=== PATIENT | female | born 1960 | race Caucasian/White ===

== ENCOUNTER 2018-07-02 00:24 | Outpatient (CLI) | payer BC, SELFPAY ==
--- NOTE | 2018-07-02 11:46 | DI.MAMMO_ITS ---
SYMPTOM/DIAGNOSIS: SCREENING, FAMILY HISTORY, Z80.3, Z12.31 MAMMOGRAMS: Mammograms were interpreted according to the usual protocol including computer analysis with CAD system, tomosynthesis and C view imaging. Comparison is made with prior examinations. Breast density, B. No masses or microcalcifications are seen. There is nothing to suggest malignancy. IMPRESSION: Negative mammogram. Routine screening is recommended. Category 1. MQSA ASSESSMENT OF FINDINGS: Negative. Category 1. Patient will receive a letter notifying them of these results. BI-RADS category B. There are scattered areas of fibroglandular density.
== END 2018-07-02 00:44 ==
PROVIDERS: PCP Family Medicine; Visit Provider Nurse Practitioner Women's Health
DX: Z13.1 Encounter for screening for diabetes mellitus (principal); Z80.3 Family history of malignant neoplasm of breast
CPT/HCPCS: 77063; 77067

== ENCOUNTER 2020-07-20 04:06 | Outpatient (CLI) | payer BC, SELFPAY ==
[2020-07-20 08:41] LABS: Abs Immature Grans 0.02 10^3/uL (0.0-0.06); Absolute Basophil Count 0.06 10^3/uL (0.0-0.2); Absolute Eosinophil Count 0.19 10^3/uL (0.0-0.7); Absolute Monocyte Count 0.72 10^3/uL (0.1-0.8); Absolute Neutrophil Count 5.43 10^3/uL (1.2-6.7); Basophils % 0.7; Eosinophils % 2.3; HCT 42.7 % (36.0-46.0); HGB 13.9 g/dL (11.2-15.7); Immature Grans % 0.2; Lymphocytes % 22.8; MCH 30.3 pg (27.0-33.0); MCHC 32.6 % (32.0-36.0); MCV 93.2 fL (80-95); MPV 9.2 fL (8.0-11.0); Monocytes % 8.7; Neutrophils % 65.3; Nucleated RBC 0 %; Platelet Count 387 10^3/uL (130-400); RBC 4.58 10^6/uL (3.93-5.22); RDW 13.6 % (11.7-14.6); RDW-SD 46.8 fL; WBC 8.32 10^3/uL (4.4-10.8)
[2020-07-20 09:30] LABS: Anion Gap 7.2 mmol/L (3-11); BUN 17 mg/dL (7-18); CO2 26.8 mmol/L (21.0-32.0); CREATININE 0.58 mg/dL (0.55-1.02); Calcium 8.5 mg/dL (8.5-10.1); Calculated LDL 253 mg/dL (<100); Chloride 106 mmol/L (98-107); Cholesterol 337 mg/dL (<200); Glucose 94 mg/dL (74-106); HDL Cholesterol 40 mg/dL (40-60); Potassium 4.3 mmol/L (3.5-5.1); Sodium 140 mmol/L (136-145); Triglyceride 221 mg/dL (<150)
[2020-07-21 04:20] LABS: Vitamin D 25 Total 34.4 ng/ml (30-100)
== END 2020-07-20 04:26 ==
PROVIDERS: PCP Family Medicine; Visit Provider Family Medicine
DX: F41.9 Anxiety disorder, unspecified (principal); E78.5 Hyperlipidemia, unspecified; E55.9 Vitamin D deficiency, unspecified
CPT/HCPCS: 36415; 80048; 80061; 82306; 85025

== ENCOUNTER 2020-10-05 01:38 | Outpatient (CLI) | payer BC, SELFPAY ==
--- NOTE | 2020-10-05 | DI.MAMMO_ITS ---
EXAM: MG MAMMO SCREENING CLINICAL HISTORY: SCREENING, Z12.31. TECHNIQUE: Bilateral full field digital CC and MLO mammographic images were obtained with 3D tomosyn thesis and utilizing computer aided detection (CAD). COMPARISON: Prior mammograms dating back to 2012, the most recent being appropriate 2017. FINDINGS: There are no CAD designations. There are no spiculated masses nor malignant appearing microcalcification groups. There is no signif icant architectural distortion nor skin thickening-retraction. IMPRESSION: No radiographic evidence of malignancy. BI-RADS Category 1 - Negative Breast Density - Category B - Scattered areas of fibroglandular density Breast density Category C or D implies that the patient has dense breast tissue. Dense breast tissue can make it harder to find cancer on a mammogram. Dense breast tissue is also associated with an incr eased risk of breast cancer. This information about the result of the mammogram report was provided to the patient to raise their awareness. Use this report when you speak with the patient about their risks for breast cancer, which includes their family history. At that time, you may recommend additional screening tests (Ultrasoun d or MRI) as these tests may add significant information. A negative radiographic report should not delay biopsy if a dominant or clinically suspicious mass is present. Up to ten percent of cancers are not identified on mammography. A negative report may reinforce clinical impression. Adenosis and dense breasts may obscure an underlying neoplasm. False positive reports average 6 to 10%. Patient will receive a letter notifying them of these results.
== END 2020-10-05 01:58 ==
PROVIDERS: PCP Family Medicine; Visit Provider Obstetrics & Gynecology
DX: Z12.31 Encounter for screening mammogram for malignant neoplasm of breast (principal)
CPT/HCPCS: 77063; 77067

== ENCOUNTER 2021-08-22 11:29 | Outpatient (CLI) | payer BC, SELFPAY ==
--- NOTE | 2021-08-22 10:30 | DI.RAD_ITS ---
Exam(s) XR CLAVICLE LT EXAM: XR CLAVICLE LT CLINICAL HISTORY: LEFT CLAVICLE FRACTURE TECHNIQUE: 2D digital imaging was performed of the left clavicle. Two images were obtained. AP and axial views were obtained. COMPARISON: No exams were available for comparison FINDINGS: BONES: There is again seen a comminuted fracture of the midshaft of the left clavicle. There has bee n some change in alignment of the fracture with less over riding of the fracture noted. No bony dest ructive lesion is seen. JOINTS: No dislocation present. SOFT TISSUE: Normal. IMPRESSION: Comminuted fracture of the midshaft of the left clavicle. DATA REPOSITORY: RADIATION DOSE DELIVERED:
== END 2021-08-22 11:30 | disposition home or self-care (01) ==
LOC: DIORS 11:30
PROVIDERS: PCP Family Medicine; Referring Provider Family Medicine; Visit Provider Student in an Organized Health Care Education/Training Program
DX: S42.002D Fracture of unspecified part of left clavicle, subsequent encounter for fracture with routine healing (principal)
CPT/HCPCS: 73000

== ENCOUNTER 2021-08-23 02:21 | Outpatient (CLI) | payer BC, SELFPAY ==
[2021-08-23 12:25] LABS: Source Nasal/Nares
[2021-08-23 15:11] LABS: COVID-19 PCR Negative (Negative)
== END 2021-08-23 02:22 | disposition home or self-care (01) ==
LOC: LBO 02:21
PROVIDERS: PCP Family Medicine; Visit Provider Student in an Organized Health Care Education/Training Program
DX: Z20.822 Contact with and (suspected) exposure to COVID-19 (principal)
CPT/HCPCS: 87635

== ENCOUNTER 2021-08-24 06:01 | Day surgery (SDC) | payer BC, SELFPAY ==
[2021-08-24] VITALS (9 sets, daily range): BP systolic 92–116; BP diastolic 31–71; PULSE 69–88; RESP 10–25; TEMP 36–36.9; O2SAT 94–98; BMI 29.5
[2021-08-24] MEDS: Lactated Ringers 1,000 ML 100 ML IV (06:41)
--- NOTE | 2021-08-24 07:06 | W.ANESPRE ---
General Info Date of Service Date Performed: 08/24/21 Height: 5 ft 1 in Weight: 70.8 kg Body Mass Index (BMI): 29.5 Surgical Procedure: Operation Date: 08/24/21 07:40 Proposed Procedures Side Surgeon p Shoulder ORIF Clavicle Left John Jernigan MD Meds Allergies and Home Medications Allergies Allergy/AdvReac Type Severity Reaction Status Date / Time No Known Allergies Allergy Verified 08/24/21 06:22 Home Medication Medication Instructions Recorded atorvastatin 40 mg tablet 40 mg PO DAILY 08/22/21 cholecalciferol (vitamin D3) 25 25 mcg PO DAILY 08/22/21 mcg (1,000 unit) capsule diphenhydramine HCl 50 mg capsule 50 mg PO QHS 08/22/21 magnesium 250 mg tablet 250 mg PO DAILY 08/22/21 paroxetine HCl 20 mg tablet 20 mg PO DAILY 08/22/21 acetaminophen [Tylenol] 08/24/21 ibuprofen 08/24/21 Current Visit Medications: Current Medications Generic Name Dose Route Start Last Admin Trade Name Freq PRN Reason Stop Dose Admin Ringer's Solution 1,000 mls @ 100 mls/hr 08/24/21 06:00 08/24/21 06:41 IV 09/22/21 23:59 100 mls/hr INFUSION ABELARDO Administration Cefazolin Sodium/Dextrose 2 gm in 50 mls @ 100 mls/hr 08/24/21 06:00 Ancef Duplex IVPB 08/24/21 16:00 PREOP ABELARDO IV Miscellaneous Supplies 1 each 08/24/21 06:00 Iv Access IV 09/22/21 23:59 DIRECTED ABELARDO Sodium Chloride 0 ml 08/24/21 06:00 Normal Saline Flush 10 Ml Syr IV 09/22/21 23:59 PRN PRN Sodium Chloride 0 ml 08/24/21 06:00 Normal Saline 10 Ml Vial IJ 09/22/21 23:59 DIRECTED PRN Sterile Water 0 ml 08/24/21 06:00 Water,Injection,Sterile 10 Ml Vial IJ 09/22/21 23:59 DIRECTED PRN PFSH Active Problems Active Problems: Problem Status Onset Code Closed left clavicular fracture 08/20/21 S42.002A Medical History Active Problem List Closed left clavicular fracture (Acute 08/20/21) Medical History Anxiety HLD (hyperlipidemia) Medical History Comments:: Pt. states with previous surgeries she has been very hypotensive during surgery Surgical History Surgical History (Updated 08/24/21 @ 06:22 by Bindu Helm RN) Hx of appendectomy Hx of section x2 Tobacco Smoking/Tobacco Use Status: Current every day Alcohol Alcohol Intake: current Alcohol intake frequency: holidays/special occasions only Alcohol type: wine Substance Use Substance use: Never Substance use type: does not use Vital Signs and Lab Results Vital Signs Most Recent Vital Signs in EMR: Most Recent Vital Signs Temp Pulse Resp BP Pulse Ox 36.0 C L 88 18 95/63 L 97 08/24/21 06:07 08/24/21 06:07 08/24/21 06:07 08/24/21 06:07 08/24/21 06:07 Lab Results Blood Type / Crossmatch: No Data to Display Complete Blood Count: No Data to Display Complete Metabolic Panel: No Data to Display Liver Function Panel: No Data to Display Coagulation Panel: No Data to Display Cardiac Panel: No Data to Display Arterial Blood Gas: No Data to Display Venous Blood Gas: No Data to Display Pancreas Panel: No Data to Display Thyroid Panel: No Data to Display Infectious Disease: Coronavirus (COVID-19)(PCR) Negative (Negative) 08/23/21 09:06 08/23/21 Coronavirus 2019 Source Nasal/Nares 08/23/21 09:06 08/23/21 Blood Cultures: No Data to Display Toxicology Panel: No Data to Display Anesthesia Assessment and Plan Anesthesia History Personal History: Other Family History: No Family History of Anesthesia Complications Exercise Tolerance Exercise Tolerance: Metabolic Equivalents>4 Pertinent Negatives Pertinent Negatives: No Major Cardiovascular Symptoms or Complaints, No Major Pulmonary Symptoms or Complaints and No History of CVA/TIA Cardiac & Pulmonary Exam Cardiac Exam: Normal S1/S2 Heart Sounds Pulmonary Exam: Clear Bilateral Breath Sounds Implantable Cardiac Device Does patient have a Pacemaker or an ICD?: No Airway Exam Known Difficult Airway: No Mallampati Class: 2 Mouth Opening: Normal (> 3cm) Thyromental Distance: Greater than 3 cm Neck Range of Motion: Full ROM Neck Circumference: Normal Teeth Condition: Normal Dentition ASA Classification ASA Score: ASA 2 Emergency Case?: No NPO Status NPO Status: NPO Clears >2 hours, Solids >8 hours Anesthesia Plan Resuscitation Status: Full Code Anesthesia Technique: General Anesthesia Airway Planned: Endotracheal Tube Pain Management: Surgeon and patient request nerve block Monitors Used: Standard Monitors
[2021-08-24] MEDS: ceFAZolin 2 GM/50 ML BAG IVPB (07:28)
--- NOTE | 2021-08-24 08:00 | W.ANESNERVE ---
Nerve Block Single Injection Procedure Date and Time Date Performed: 08/24/21 Procedure Start: 07:20 Location Where Procedure Performed Procedure Location: Day Surgery Unit Reason Performed: Postoperative Analgesia Requesting Provider: John Jernigan Timeout Performed Timeout Performed: Yes Monitoring Used ECG, Blood Pressure, SpO2 and See EMR for corresponding vital signs Sterility Sterility: Hand Hygiene, Surgical Cap, Surgical Mask, Sterile Gloves and Chlorhexidine Sedation Given During Procedure Sedation Given (Indicate Dose Given): Versed IV Dose:: 2 mg Patient Mental Status Patient Mental Status: Sedate with meaningful communication Nerve Block 1st Nerve Block: Laterality: Left Block Type: Supraclavicular Needle / Catheter Used: 100mm SonoPlex II Local Anesthetic Bolus (Indicate Dose Given): Lidocaine used for local infiltration of skin, Injected in 3-5ml increments after negative blood aspiration, Bupivacaine 0.5% Dose:: 10 ml and Exparel Dose:: 10 ml Additives (Indicate Dose Given): None Ultrasound: Sterile probe cover and gel used Ultrasound Image Saved?: Yes Nerve Stimulator: Not Used Paresthesia: Left (Resolved with needle repositioning) Paresthesia Duration: Transient Procedure Tolerated: No Complications and Patient tolerated well Procedure Outcome: Successful Performed By: Sweetie Sanchez
--- NOTE | 2021-08-24 09:25 | DI.RAD_ITS ---
Exam(s) XR CLAVICLE LT EXAM: XR CLAVICLE LT CLINICAL HISTORY: Closed left clavicular fracture. TECHNIQUE: 2D digital imaging was performed. COMPARISON: No exams were available for comparison FINDINGS: Fluoroscopy was provided during orthopedic procedure on left clavicle fracture. See procedure report for details. IMPRESSION: Total fluoroscopy time 30 point seconds Total cumulative dose 1.64mGy DATA REPOSITORY: RADIATION DOSE DELIVERED:
--- NOTE | 2021-08-24 10:38 | PDOC.DSDIS_ITS ---
Discharge Plan Disposition Patient Disposition: HOME Condition: Stable Discharge Details Reason For Visit: Left clavicle surgery Attending Provider: John Jernigan Primary Care Provider: Catrina Montenegro Home Meds and New Rx's Prescriptions: New aspirin 81 mg tablet,delayed release (DR/EC) 81 mg PO DAILY 14 Days Qty: 14 RF: 0 naproxen 250 mg tablet 250 - 500 mg PO BID PRN (Reason: Moderate pain or swelling) Qty: 40 RF: 0 oxycodone 5 mg tablet 5 - 10 mg PO Q4H PRN (Reason: moderate to severe pain) Qty: 16 RF: 0 Continued paroxetine HCl [Paxil] 20 mg tablet 20 mg PO DAILY RF: 0 atorvastatin 40 mg tablet 40 mg PO DAILY RF: 0 magnesium 250 mg tablet 250 mg PO DAILY RF: 0 cholecalciferol (vitamin D3) 25 mcg (1,000 unit) capsule 25 mcg PO DAILY RF: 0 diphenhydramine HCl 50 mg capsule 50 mg PO QHS RF: 0 acetaminophen [Tylenol] 325 mg Capsule RF: 0 Discontinued ibuprofen 200 mg Tablet RF: 0 Discharge Instructions Additional Instructions: Surgery: Left clavicle open reduction internal fixation Activity: Nonweightbearing left upper extremity. Use sling whenever up and about or out of the home. While resting it is best to remove sling and gently elevate forearm on pillows. Encourage daily range of motion to elbow wrist and hand. Gentle motion about the shoulder is okay. A physical therapy prescription will be provided separately in the office at follow up if needed. Prescriptions: Aspirin 81 mg take 1 daily to prevent a blood clot for 2 weeks Naproxen 250 mg take 1-2 every 12 hours with a meal as needed for moderate pain Oxycodone 5 mg take 1-2 every 4-6 hours as needed for severe pain You may use [id number] Tylenol (acetaminophen) as needed for mild pain. These pain medications may be taken all at once or in different combinations as needed. Also, recommend Colace (docusate) as a stool softener as surgery and pain medicine cause constipation. Dressings: Leave dressing in place until follow up. May shower after 7 days. Follow-up: 10-[address] Jernigan Let us know right away if you develop any redness, drainage, fevers, chest pain, or trouble breathing. Do not drink alcohol or drive for at least 24 hours after anesthesia. Please call the office during business hours with any questions or concerns. Referrals: John Jernigan MD [ [facility]FF [facility]YSICIAN] - Discharge Orders Discharge Orders: Discharge Order (Routine); Ordered 08/24/21 Ordered By: John Jernigan DS: Diagnosis Discharge Diagnosis (1) Closed left clavicular fracture: Status: Acute
--- NOTE | 2021-08-24 10:59 | W.ANESPOSTOP ---
Postoperative Evaluation Date, Time and Location Date Performed: 08/24/21 Time Performed: 10:59 Patient Location: Day Surgery Unit Vital Signs Most Recent Imported Vital Signs: Most Recent Vital Signs Temp Pulse Resp BP Pulse Ox 36.9 C 70 22 116/70 96 08/24/21 10:47 08/24/21 10:47 08/24/21 10:47 08/24/21 10:47 08/24/21 10:47 Pain Score Most Recent Pain Score: Most Recent Pain Score Pain Level 0 08/24/21 10:47 Assessment Mental Status: Awake (Alert & Oriented to Patient Baseline) Airway and Respiratory Function: Patent airway with normal (patient baseline) respiratory exam Cardiovascular Function: Hemodynamically Stable Hydration Status: Adequately Hydrated Nausea & Vomiting: No Nausea or Vomiting Pain: Pt. Denies Any Pain Peripheral Nerve Block: Regional nerve block not resolved at time of post operative discharge
--- NOTE | 2021-08-24 12:54 | ROE_ITS ---
Date of service: 08/24/21 Time of Service: 07:30 Operative Note Operative Note DATE OF PROCEDURE: 08/24/21 PRE-OP DIAGNOSIS: Left displaced clavicle shaft fracture POST-OP DIAGNOSIS: same PROCEDURE: Left clavicle ORIF, CPT #36857 SURGEON: John Jernigan SINGEING TORCH OPERATOR: Grant Payton ANESTHESIA TYPE: Local By Surgeon, General LMA/ETT and Primary Nerve Block Refer to Anesthesia Record ESTIMATED BLOOD LOSS: 10 COMPLICATIONS: None Patient was transported to: PACU Patient's condition: stable Implants: Synthes 2.7 mm VA LCP CS2 lateral plate with 1x 2.7mm cortex screws medially and laterally; 3x locking screws medially; 4x locking screws laterally SutureTape cerclage distal fragment horizontal fracture to large intact inferior fragment including CC ligaments and then additional SutureTape Nice knot cerclage around distal fragment, distal clavicle, and plate. Indications: Please see complete medical record for details. Findings: Widely displaced distal clavicle shaft fracture with mild posterior comminution and large inferior fragment containing strong CC ligament attachments Procedure Description: In the operating room, general anesthesia was induced. The patient was positioned supine on the operating room table. All bony prominences were well-padded. Preoperative antibiotics were administered. The left clavicle was prepped and draped in the usual sterile fashion. The correct patient, procedure, and side of the procedure were all verified prior to incision. The fracture site was palpated and fluoroscopic guidance was used to preinjected superficially and deep about the clavicle with 30 cc of 0.5% bupivacaine containing epinephrine. Sharp dissection was carried through skin subcutaneous tissue down to the fracture site taking care to raise full-thickness flaps. The periosteum was was incised and raised continuous with these flaps medially and laterally limiting exposure to the superior clavicle to limit devitalization. The medial clavicle fracture was clamped and mobilized with hematoma irrigated out and then the deeply displaced posteriorly lateral fracture was visualized and cleaned in a similar fashion. There was a significant inferior fragment somewhat horizontal position with strong anterior and inferior attachments of the CC ligaments. This fragment was not mobile and used to reduce the lateral half of the fracture into correct position secured with bone clamps. A suture tape was double over and passed around this inferior fragment incorporating the CC ligaments and lateral clavicle and then securely tied using a Nice knot with excellent fixation. This reduction of the lateral clavicle to the inferior fragment brought the medial and lateral fragments into excellent position. Bone clamps were used to optimize reduction in rotation. An additional doubled over suture tape was passed around the lateral and inferior fragments for later tying over the plate. The lateral medium size clavicle plate had the best fit using the added length to accommodate this lateral shaft as opposed to true lateral fracture while allowing more screw fixation laterally and reduced plate prominence over the diminutive clavicle medially. The plate was rotated into b est position superiorly and suture tapes were used to provisionally secure the plate into position. Medial to the fracture a bicortical cortex was placed and provisionally tightened as well followed by an additional bicortical cortex screw lateral to the fracture site securing rotation and then both screws were final tightened completing reduction of plate to bone. The suture tapes were further tightened and the construct was already stable. The lateralmost aspect of the plate was slightly superior to the clavicle so an additional lateralmost posterior bicortical cortex screw was placed completing plate to bone compression. The variable angle locking guide was and used to place a medialmost screw in a divergent fashion away from the fracture followed by an additional 2 bicortical locking screws. The locking guide was then used laterally to place 3 bicortical locking screws before the lateral posterior cortex screw was removed and replaced with a fourth locking screw. All screws w ere final tightened. The Nice knot cerclage was final tightened. Both Nice knots were brought tails anterior and deep to avoid prominence. The construct was tested and demonstrated excellent stability and fixation strength. AP, cephalic and tilt, and [id number] fluoroscopy confirmed appropriate fracture reduction and hardware placement. The wound was copiously irrigated normal saline. Deep tissue was closed in a full-thickness watertight fashion using 2-0 Monocryl. A small posterior comminuted piece was incorporated in this deep soft tissue repair. Subcutaneous tissue was closed using 2-0 Monocryl in an intermittent fashion. The skin was closed with 3-0 Monocryl in a running subcuticular fashion. Skin glue was applied over the incision followed by a Mepilex bandage. The patient awoke from anesthesia without complication and was transferred to the recovery room in a stable condition.
--- NOTE | 2021-08-25 06:09 | NUR.NOTE ---
Nursing Note: Late entry/addendum: This RN noticed patients L eye was a little droopy, as she went into the bathroom. Charge nurse Alvarado, was notified. This RN asked the Pt to pull down her mask and smile, Pt had full smile. This RN asked the patient about her eye, and she stated that she has one eye smaller than the other. Pt was given the anesthesia nerve block information sheet, and told to call the department w/ questions or concerns.HE
--- NOTE | 2021-08-25 11:41 | PDOC.ANES ---
Date of service: 08/25/21 Time of Service: 11:41 Anesthesia Note Report Anesthesia Note: I was informed that the patient had made contact with the Anesthesia department yesterday afternoon with concerns re: hoarseness and slight left facial droop. Phone call to patient today reveals that her voice is back to normal, has a bit of a sore throat, and the slight left facial droop is unchanged. Patient states that she does remember our preop conversation about block side-effects and that the facial droop is nothing to be alarmed about and should resolve when the block's effects wear off. She is still getting good pain relief in left clavicle and only using Naproxen for minimal discomfort.
== END 2021-08-24 11:47 | disposition home or self-care (01) ==
PROVIDERS: PCP Family Medicine; Visit Provider Student in an Organized Health Care Education/Training Program
PROC: (CPT 23515; principal; 2021-08-24 07:30)
DX: S42.022A Displaced fracture of shaft of left clavicle, initial encounter for closed fracture (principal); W19.XXXA Unspecified fall, initial encounter
CPT/HCPCS: 23515; 76942; 73000; J0690; J1100; J1885; J2001; J2250; J2405; J2704

== ENCOUNTER 2021-09-06 11:35 | Outpatient (CLI) | payer BC, SELFPAY ==
--- NOTE | 2021-09-06 10:30 | DI.RAD_ITS ---
Exam(s) XR CLAVICLE LT EXAM: XR CLAVICLE LT CLINICAL HISTORY: CLAVICLE FX F/U. TECHNIQUE: 2D digital imaging was performed. COMPARISON: X-rays August 22, 2021 . Also operative images [id number] FINDINGS: Again noted is a dorsal fixation plate across the clavicle fracture site. Appear similar to 08/24/20 21. No hardware fracture or loosening. No radiographic evidence of osteomyelitis. The fracture line is still evident. AC joint not distracted. IMPRESSION: DATA REPOSITORY: RADIATION DOSE DELIVERED:
== END 2021-09-06 11:36 | disposition home or self-care (01) ==
LOC: DIORS 11:35
PROVIDERS: PCP Family Medicine; Referring Provider Family Medicine; Visit Provider Student in an Organized Health Care Education/Training Program
DX: S42.022D Displaced fracture of shaft of left clavicle, subsequent encounter for fracture with routine healing (principal); W19.XXXD Unspecified fall, subsequent encounter
CPT/HCPCS: 73000

== ENCOUNTER 2021-10-18 10:57 | Outpatient (CLI) | payer BC, SELFPAY ==
--- NOTE | 2021-10-18 10:46 | DI.RAD_ITS ---
Exam(s) XR CLAVICLE LT EXAM: XR CLAVICLE LT CLINICAL HISTORY: left clavicle fx f/u. TECHNIQUE: 2D digital imaging was performed. COMPARISON: CR XR CLAVICLE LT from 09/06/2021 FINDINGS: Again noted is a dorsal fixation plate across the midshaft fracture site. Fracture line is still vis ible but without further displacement. Hardware appears intact. No loosening. No radiographic evid ence of osteomyelitis. IMPRESSION: DATA REPOSITORY: RADIATION DOSE DELIVERED:
== END 2021-10-18 10:58 | disposition home or self-care (01) ==
LOC: DIORS 10:57
PROVIDERS: PCP Family Medicine; Referring Provider Family Medicine; Visit Provider Student in an Organized Health Care Education/Training Program
DX: S42.022D Displaced fracture of shaft of left clavicle, subsequent encounter for fracture with routine healing (principal); W19.XXXD Unspecified fall, subsequent encounter
CPT/HCPCS: 73000

== ENCOUNTER 2021-12-15 01:54 | Outpatient (CLI) | payer BC, SELFPAY ==
--- NOTE | 2021-12-15 09:30 | DI.MAMMO_ITS ---
Exam(s) MAMMO SCREENING EXAM: MAMMO SCREENING CLINICAL HISTORY: SCREENING, Z12.31 TECHNIQUE: Bilateral full field digital CC and MLO mammographic images were obtained with 3D tomosyn thesis and utilizing computer aided detection (CAD). COMPARISON: Available for comparison. FINDINGS: Masses/Architectural Distortion: None seen. Microcalcifications: No suspicious pleomorphic-type are seen. Skin Thickening/Nipple Retraction: None. IMPRESSION: 1. No significant interval change with no specific features of malignancy noted. 2. Unless there is more urgent need, screening mammography is recommended, as per [employer] guidelines. BI-RADS Category 1 - Negative Breast Density - Category B - Scattered areas of fibroglandular density Breast density category C or D implies that the patient has dense breast tissue. Dense breast tissue is very common and is not abnormal but dense breast tissue can make it harder to find cancer on a ma mmogram. Also, dense breast tissue may increase their breast cancer risk. This information about the result of the mammogram report was provided to the patient to raise their awareness. Use this report when you speak with the patient about their risks for breast cancer, which includes their family hist ory. At that time, you may recommend for more screening tests (Ultrasound or MRI) as they might be us eful based on their risk. A negative radiographic report should not delay biopsy if a dominant or clinically suspicious mass is present. Up to ten percent of cancers are not identified on mammography. A negative report may reinforce clinical impression. Adenosis and dense breasts may obscure an underlying neoplasm. False positive reports average 6 to 10%. Patient will receive a letter notifying them of these results.
== END 2021-12-15 02:14 ==
PROVIDERS: PCP Family Medicine; Visit Provider Obstetrics & Gynecology
DX: Z12.31 Encounter for screening mammogram for malignant neoplasm of breast (principal)
CPT/HCPCS: 77063; 77067

== ENCOUNTER 2022-12-17 01:44 | Outpatient (CLI) | payer BC, SELFPAY ==
--- NOTE | 2022-12-17 | DI.MAMMO_ITS ---
Exam(s) MAMMO SCREENING EXAM: MAMMO SCREENING CLINICAL HISTORY: SCREENING MAMMO FOR BREAST CANCER Z12.31 TECHNIQUE: Mammograms were interpreted according to the usual protocol including computer analysis w [employer] CAD system, tomosynthesis and C-view imaging. COMPARISON: 2013 through 2021 FINDINGS: The breasts are composed of scattered fibroglandular densities, Breast Density category B. No suspicious masses or suspicious microcalcifications are seen. No skin thickening or abnormal axillary lymph nodes are seen. There has been no significant change from prior exams. IMPRESSION: BI-RADS Category 1, Negative mammogram Yearly screening mammography is recommended. Breast Density - Category B, scattered fibroglandular densities. A negative radiographic report should not delay biopsy if a dominant or clinically suspicious mass is present. Up to ten percent of cancers are not identified on mammography. A negative report may reinforce clinical impression. Adenosis and dense breasts may obscure an underlying neoplasm. False positive reports average 6 to 10%. Patient will receive a letter notifying them of these results.
== END 2022-12-17 02:04 ==
LOC: DI 01:45
PROVIDERS: PCP Family Medicine; Visit Provider Obstetrics & Gynecology
DX: Z12.31 Encounter for screening mammogram for malignant neoplasm of breast (principal)
CPT/HCPCS: 77063; 77067

== ENCOUNTER → 2023-12-23 02:17 | Outpatient (CLI) | payer BC, SELFPAY ==
--- NOTE | 2023-12-23 | DI.MAMMO_ITS ---
Exam(s) MAMMO SCREENING EXAM: MAMMO SCREENING CLINICAL HISTORY: SCREENING MAMMO FOR BREAST CANCER Z12.31 TECHNIQUE: Bilateral full field digital CC and MLO mammographic images were obtained with 3D tomosyn thesis and utilizing computer aided detection (CAD). COMPARISON: Available for comparison. FINDINGS: Masses/Architectural Distortion: None seen. Microcalcifications: No suspicious pleomorphic-type are seen. Skin Thickening/Nipple Retraction: None. IMPRESSION: 1. No significant interval change with no specific features of malignancy noted. 2. Unless there is more urgent need, screening mammography is recommended, as per [employer] guidelines. BI-RADS Category 1 - Negative Breast Density - Category B - Scattered areas of fibroglandular density Breast density category C or D implies that the patient has dense breast tissue. Dense breast tissue is very common and is not abnormal but dense breast tissue can make it harder to find cancer on a ma mmogram. Also, dense breast tissue may increase their breast cancer risk. This information about the result of the mammogram report was provided to the patient to raise their awareness. Use this report when you speak with the patient about their risks for breast cancer, which includes their family hist ory. At that time, you may recommend for more screening tests (Ultrasound or MRI) as they might be us eful based on their risk. A negative radiographic report should not delay biopsy if a dominant or clinically suspicious mass is present. Up to ten percent of cancers are not identified on mammography. A negative report may reinforce clinical impression. Adenosis and dense breasts may obscure an underlying neoplasm. False positive reports average 6 to 10%. Patient will receive a letter notifying them of these results.
== END ==
PROVIDERS: PCP Family Medicine; Visit Provider Obstetrics & Gynecology
DX: Z12.31 Encounter for screening mammogram for malignant neoplasm of breast (principal)
CPT/HCPCS: 77063; 77067

== ENCOUNTER 2024-12-24 01:02 | Outpatient (CLI) | payer MEDICARE, OTHER, SELFPAY ==
--- NOTE | 2024-12-24 13:04 | DI.MAMMO_ITS ---
Exam(s) MAMMO SCREENING EXAM: MAMMO SCREENING CLINICAL HISTORY: Z12.31 Screening TECHNIQUE: Bilateral full field digital CC and MLO mammographic images were obtained with 3D tomosyn thesis and utilizing computer aided detection (CAD). COMPARISON: Available for comparison. FINDINGS: Masses/Architectural Distortion: No suspicious masses or areas of architectural distortion are presen t. Microcalcifications: No suspicious pleomorphic-type are seen. Skin Thickening/Nipple Retraction: None. IMPRESSION: 1. No significant interval change with no specific features of malignancy noted. 2. Unless there is more urgent need, screening mammography is recommended, as per [employer] guidelines. BI-RADS Category 1 - Negative Breast Density - Category B - Scattered areas of fibroglandular density Breast density category C or D implies that the patient has dense breast tissue. Dense breast tissue is very common and is not abnormal but dense breast tissue can make it harder to find cancer on a ma mmogram. Also, dense breast tissue may increase their breast cancer risk. This information about the result of the mammogram report was provided to the patient to raise their awareness. Use this report when you speak with the patient about their risks for breast cancer, which includes their family hist ory. At that time, you may recommend for more screening tests (Ultrasound or MRI) as they might be us eful based on their risk. A negative radiographic report should not delay biopsy if a dominant or clinically suspicious mass is present. Up to ten percent of cancers are not identified on mammography. A negative report may reinforce clinical impression. Adenosis and dense breasts may obscure an underlying neoplasm. False positive reports average 6 to 10%. Patient will receive a letter notifying them of these results.
== END 2024-12-24 01:22 ==
LOC: DI 01:02
PROVIDERS: PCP Family Medicine; Visit Provider Obstetrics & Gynecology
DX: Z12.31 Encounter for screening mammogram for malignant neoplasm of breast (principal); R92.323 Mammographic fibroglandular density, bilateral breasts
CPT/HCPCS: 77063; 77067